=== PATIENT | female | born 1940 | race Caucasian/White ===

== ENCOUNTER 2016-11-13 04:48 | Inpatient (IN) | payer OTHER ==
[2016-10-28 11:54] VITALS: BMI 27.0
--- NOTE | 2016-10-28 12:40 | PAT Medication Instructions ---
Service Date Oct 28, 2016. Current Home Medication List Acetaminophen (Tylenol), 650 MG PO Q4 PRN for Pain Allopurinol (Zyloprim), 300 MG PO HS Aloe Vera (Aloe Vera), 1 CAP PO QAM Bumetanide (Bumex), 2 MG PO QAM Calcium/Vitamin D (Os-Sridhar 500 Plus D), 1 TAB PO QAM Cholecalciferol (Vitamin D3), 1 TAB PO QAM Cyanocobalamin (Vitamin B12), 1 TAB PO QAM Digoxin (Digoxin), 1 TAB PO QAM Fenofibrate (Tricor), 48 MG PO HS Lisinopril (Zestril), 2.5 MG PO QAM Metoprolol Succinate (Toprol Xl), 25 MG PO QAM Multivitamin (Multivitamin), 1 TAB PO QAM [place]-3 Fatty Acids ([place] 3), 1 CAP PO QAM Omeprazole (Prilosec), 20 MG PO QAM Pravastatin (Pravachol ), 20 MG PO HS Rivaroxaban (Xarelto), 20 MG PO QPM [Magnesium], 500 MG PO QAM Medication Instructions For Your Scheduled Surgery Rivaroxaban (Xarelto), 20 MG PO QPM (hold 3 days prior to surgery- cardio approves) - Hold the following medications 2 weeks prior to surgery: [place]-3 Fatty Acids ([place] 3), 1 CAP PO QAM - Hold the following medications 5 days prior to surgery: Aloe Vera (Aloe Vera), 1 CAP PO QAM - Hold the following medications evening prior to surgery: Fenofibrate (Tricor), 48 MG PO HS - Hold the following medications the morning of surgery: Magnesium 500 MG PO QAM Multivitamin (Multivitamin), 1 TAB PO QAM Lisinopril (Zestril), 2.5 MG PO QAM Calcium/Vitamin D (Os-Sridhar 500 Plus D), 1 TAB PO QAM Cholecalciferol (Vitamin D3), 1 TAB PO QAM Cyanocobalamin (Vitamin B12), 1 TAB PO QAM Bumetanide (Bumex), 2 MG PO QAM - Take the following medications the morning of surgery with a sip of water: Omeprazole (Prilosec), 20 MG PO QAM Metoprolol Succinate (Toprol Xl), 25 MG PO QAM Digoxin (Digoxin), 1 TAB PO QAM Acetaminophen (Tylenol), 650 MG PO Q4 PRN for Pain (if needed) - Take the following medications as scheduled the night before surgery: Pravastatin (Pravachol ), 20 MG PO HS Allopurinol (Zyloprim), 300 MG PO HS Acetaminophen (Tylenol), 650 MG PO Q4 PRN for Pain If you have any questions please call us at [phone] or [phone] ( [facility]) or [phone]
[2016-10-28 13:25] LABS: BASO % 0.5 %; BASO ABS # 0.05 K/uL (0-0.2); COMPLETE YES; EOS % 1.9 %; IG% 0.3 %; LYMPH % 19.1 %; LYMPH ABS # 2.06 K/uL (1.2-3.4); MEAN CELL VOLUME 91.7 fL (80-100); MEAN CORPUSCULAR HEMOGLOBIN 29.9 pg (25-34); MEAN CORPUSCULAR HGB CONC 32.6 g/dl (32-36); MONO % 6.8 %; NEUT % 71.4 %; PLATELET COUNT 238 K/uL (130-400); RED BLOOD COUNT 4.69 M/uL (4.2-5.4)
[2016-10-28 13:34] LABS: PARTIAL THROMBOPLASTIN RATIO 1.1; PROTHROMBIN TIME (PATIENT) 10.3 SECONDS (9.0-12.0)
[2016-10-28 13:36] LABS: URINE APPEARANCE CLEAR (CLEAR); URINE BILIRUBIN NEG (NEG); URINE COLOR YELLOW; URINE NITRITE NEG (NEG); URINE PH 5.5 (4.5-7.5); URINE SPECIFIC GRAVITY 1.004 (1.000-1.030); UROBILINOGEN NEG (NEG)
[2016-10-28 13:40] LABS: MANUAL MICROSCOPIC REQUIRED? NO; REVIEW REQ? NO
[2016-10-28 14:07] LABS: BUN/CREATININE RATIO 28.4 (10-20); CALCIUM 9.8 mg/dl (8.5-10.1); CREATININE 0.86 mg/dl (0.60-1.20); POTASSIUM 3.7 mmol/L (3.5-5.1)
--- NOTE | 2016-11-11 12:56 | HISTORY & PHYSICAL EXAMINATION ---
DATE OF ADMISSION: 11/13/2016 CHIEF COMPLAINT: Primary osteoarthritis of the right knee. HISTORY OF PRESENT ILLNESS: Nevaeh is a pleasant 76-year-old female who has been dealing with chronic bilateral knee pain for several years. She has been seeing an orthopedic surgeon up in [facility]. After failing years of conservative treatment, she has elected to proceed with a total knee arthroplasty. Given her cardiac history she came down to [place] for the procedure. She understands all the risks, benefits, alternatives to the procedure and has elected to proceed. PAST MEDICAL HISTORY: Coronary artery disease, hyperlipidemia, GERD, atrial flutter and cardiac dysrhythmias. PAST SURGICAL HISTORY: Significant for a quadruple bypass surgery in 1989, repeat quadruple bypass in 1998, cardiac stent placement in 2014. ALLERGIES: AMIODARONE AND WARFARIN. MEDICATIONS: Include lisinopril, Tylenol, Xarelto, Bumex, digoxin, fenofibrate, pravastatin, and Toprol. FAMILY HISTORY: Noncontributory. SOCIAL HISTORY: The patient is , rarely drinks, and is moderately active. REVIEW OF SYSTEMS: She complains of bilateral knee pain, right worse than left. All other pertinent review of systems is negative. PHYSICAL EXAMINATION: GENERAL: She is awake, alert and oriented x3. She is in no apparent distress. She is very pleasant. HEENT: Pupils equal, round and reactive to light. Extraocular motion intact. Oral mucosa is pink and moist. VITAL SIGNS: Regular rate per radial pulse. LUNGS: Magali symmetrically bilaterally with no audible breath sounds. ABDOMEN: Soft, nontender, nondistended. MUSCULOSKELETAL: On physical examination of the right knee, she does have a varus deformity and severe tenderness to palpation mostly along the medial compartment of the right knee. She has a mild effusion. She has good motion from 0-130 degrees. No instability. IMAGING DATA: X-rays of the knee do show advanced medial compartmental arthritis and varus deformity. IMPRESSION: Medial compartmental arthritis of the right knee. PLAN: Will proceed with a Vanguard Biomet total knee arthroplasty. Postoperatively, she will be placed back on her Xarelto and discharged to general orthopedic floor for postoperative medical management. She likely can be discharged to home with home health service.
[2016-11-13] VITALS (9 sets, daily range): BP systolic 91–134; BP diastolic 53–80; PULSE 60–63; TEMP 36.3–36.9; O2SAT 92–99; Ht 154.9 cm; Wt 65.6 kg
[~2016-11-13] VITALS: Ht 154.9 cm; Wt 65.6 kg
[~2016-11-13 04:48] MED LIST: ACET-1311 PO; ALLO300T2 PO; ALOE25CA4 PO; BUME2TAB3 PO; CALC500C70 PO; CHOL1000 PO; CYAN100020 PO; FENO48TA9 PO; LISI-729 PO; LNX125 PO; MAGNESIUM PO; METO25TA3 PO; MULT-506 PO; OMEG100046 PO; PRAV20TA PO; PRLSR20 PO; RIVA1TAB4 PO
[2016-11-13] MEDS ORDERED: CEFAZOLIN 2000 MG/60 ML D5W 60 ML IV SCH (06:00)
[2016-11-13] MEDS ORDERED: GABAPENTIN 300 MG CAP PO SCH (06:00)
[2016-11-13] MEDS ORDERED: LACTATED RINGER'S 1000ML 500 ML IV ONE (06:00)
[2016-11-13] MEDS ORDERED: ROPIVACAINE 5MG/ML 30 ML 150 MG, BUPIVACAINE/EPINEPHR 0.5% MPF 30 ML, KETOROLAC TROMETH... INFIL SCH ×7 (06:00)
[2016-11-13] MEDS ORDERED: FAMOTIDINE 20 MG TAB PO SCH (06:00)
[2016-11-13] MEDS ORDERED: LACTATED RINGER'S 1000ML 1,000 ML IV SCH ×2 (06:00)
[2016-11-13] MEDS ORDERED: ACETAMINOPHEN 500 MG TAB PO SCH (06:00)
[2016-11-13] MEDS ORDERED: BUPIVACAINE 0.5 % 5 MG/1 ML PF 10ML VIAL ONE (06:14)
[2016-11-13] MEDS ORDERED: BUPIVACAINE 0.25% 30 ML VIAL ONE (06:15)
--- NOTE | 2016-11-13 06:18 | History & Physical Bridge Note ---
H&P Re-Evaluation Bridge Note: I have examined the patient, reviewed the History & Physical and in the interval since the performance of the History & Physical I have noted the following changes of clinical significance: No changes noted
[2016-11-13] MEDS ORDERED: PROPOFOL IV EMULSION 10 MG/ML 20 ML VIAL IV ONE (06:25)
[2016-11-13] MEDS ORDERED: MIDAZOLAM HCL 1 MG/ML 2ML VIAL ONE (06:25)
[2016-11-13] MEDS ORDERED: LIDOCAINE HCL 2% 2 ML VIAL (20MG/ML) ONE (06:25)
[2016-11-13] MEDS ORDERED: FENTANYL CITRATE INJ 50 MCG/1 ML 2 ML VIAL ONE (06:25)
[2016-11-13] MEDS ORDERED: ONDANSETRON INJ 2 MG/ML 2 ML VIAL ONE (06:25)
[2016-11-13] MEDS ORDERED: ORTHO JOINT ANESTHETIC ONE (06:41)
[2016-11-13] MEDS ORDERED: CLINDAMYCIN 600 MG/54 ML D5W IV ONE (06:50)
[2016-11-13] MEDS ORDERED: ATROPINE SULFATE 0.1 MG/ML 5ML SYR IV PRN (07:30)
[2016-11-13] MEDS ORDERED: HYDROmorphone INJ 2 MG/ML SYR/VIAL IV PRN (07:30)
[2016-11-13] MEDS ORDERED: ONDANSETRON INJ 2 MG/ML 2 ML VIAL IV PRN ×2 (07:30→08:45)
[2016-11-13] MEDS ORDERED: PHENYLEPHRINE 100MCG/ML 5ML SYR IV PRN (07:30)
[2016-11-13] MEDS ORDERED: EpHEDrine SULFATE INJ 50 MG/ML AMP IV PRN (07:30)
[2016-11-13] MEDS ORDERED: BACITRACIN 50000 UNIT VIAL IR ONE (08:12)
--- NOTE | 2016-11-13 08:41 | [facility] Post Operative Brief Note ---
Immediate Operative Summary Operative Date Nov 13, 2016. Pre-Operative Diagnosis Medial compartmental arthritis of the right knee. Post-Operative Diagnosis Same as preoperative diagnosis Procedure(s) Performed Right Total Knee Arthroplasty Surgeon Dr. Diaz Track Rider Surgeon(s) Benjamín Salvador PA-C Estimated Blood Loss 5ml Findings as above Specimens A: Bone and tissue, right knee Complication(s) None Disposition Recovery Room / PACU
[2016-11-13] MEDS ORDERED: BISACODYL 10 MG SUPP PR PRN (08:45)
[2016-11-13] MEDS ORDERED: MAGNESIUM HYDROXIDE SUSP 30 ML UDC PO PRN (08:45)
[2016-11-13] MEDS ORDERED: SILVER SULFADIAZINE 1% CR 50 GM JAR EXT PRN (08:45)
[2016-11-13] MEDS ORDERED: SOD PHOSPHATE/SOD BIPHOSPHATE ENEMA 132 ML BTL PR PRN (08:45)
[2016-11-13] MEDS ORDERED: MoRPHine SULFATE 2 MG/ML CARP IV PRN (08:45)
[2016-11-13] MEDS ORDERED: METOCLOPRAMIDE HCL INJ 5 MG/ML 2 ML VIAL IV PRN (08:45)
--- NOTE | 2016-11-13 09:10 | DIAGNOSTIC IMAGING REPORT ---
RIGHT KNEE 2 VIEWS History: Right total knee arthroplasty. Degenerative arthritis. Postop. FINDINGS: The patient is status post a right total knee arthroplasty. The hardware is intact. No fracture or dislocation. Surgical drains are in place. Multiple surgical clips along the medial aspect of the knee. IMPRESSION: Right total knee arthroplasty. No evidence for hardware complication. Electronically signed by: Boris Ibarra M.D. 11/13/2016 9:09 AM Dictated Date/Time: 11/13/2016 9:08 AM
--- NOTE | 2016-11-13 09:16 | OPERATIVE REPORT ---
DATE OF OPERATION: 11/13/2016 PREOPERATIVE DIAGNOSIS: Primary osteoarthritis of the right knee. POSTOPERATIVE DIAGNOSIS: Same. PROCEDURE: Right total knee arthroplasty. SURGEON: Dr. Kelechi Diaz. FREIGHT ELEVATOR ERECTOR: Benjamín Salvador PA-C, whose assistance was necessary for positioning of the leg and helping with retraction. ANESTHESIA: Spinal with a right adductor nerve block. COMPLICATIONS: None. CONDITION: Stable to PACU. IMPLANTS USED: I used a Biomet Vanguard right total knee arthroplasty system with a 67.5 right femur, 71 tibia, a 28 mm patella and a 10 mm posterior stabilized bearing. The femoral, tibial, and patellar components were cemented with Palacos-G cement. INDICATIONS: Nevaeh is a pleasant 76-year-old female who presented to my office with chronic right knee pain. X-rays and clinical examination were diagnostic for primary osteoarthritis of the right knee. After failing conservative treatment, she elected to undergo a right total knee arthroplasty. OPERATION AND FINDINGS: On 11/13/2016 she arrived at [facility] for the above procedure. She was seen in the preoperative holding area and the operative extremity was identified and signed. She was then given a spinal anesthetic and a right adductor nerve block. She was taken back to the operating room, laid on the table in supine position and put under general anesthesia. The right leg was then prepped and draped in sterile fashion. Time-out was done and the patient and operative extremity was properly identified. A midline incision was made directly over the patella. Dissection was taken down to the extensor mechanism and a medial parapatellar approach was used. The fat pad was removed, the medial retinaculum was released and the suprapatellar synovium was removed. The knee was then flexed. ACL and meniscus were removed. A drill was sent down the center of the femoral canal. An intramedullary hernandez was then placed and off that hernandez a distal femoral cutting block was placed. An 11 mm was then resected off the distal femur at 5 degrees of valgus. A posterior referencing guide was used to measure the distal femur and it measured to be a 67.5. Two drill holes were placed in 3 degrees of external rotation and the 4-in-1 cutting block was impacted into place. Anterior, posterior and chamfer cuts were then made. The box cutting guide was then attached and the box was resected for the posterior stabilizing component. The proximal tibia was then exposed. A drill was sent down the center of the tibial canal followed by an intramedullary hernandez. Off that hernandez, a proximal tibial resection guide was placed and 2 mm was resected off the low medial side. The tibia was measured to be a size 71. The tibia was then drilled and punched. Trials were placed. The knee was brought through a full range of motion and felt to be stable. The patella was everted and 8 mm was resected off the posterior aspect of the patella. A 28 mm patella was the right size and 3 peg holes were drilled. A trial patella was used. The knee was flexed and extended and felt to be stable. The trials were removed. The knee was then irrigated with 3 liters of normal saline solution with bacitracin. Surrounding soft tissues were then injected with the orthopedic pain control cocktail. The tibial, femoral and patellar components were then cemented with Palacos-G cement. After the cement had hardened, several different polyethylene bearings were used and a size 10 seemed to be the best fit. The final 10 bearing was then snapped into place and the anterior bar was locked. The knee was brought through a full range of motion and felt to be stable. Two drains were placed. The extensor mechanism was closed with #2 Vicryl in the superior medial aspect of the patella and #2 FiberWire in the superior medial aspect of the patella and a #1 Vicryl for the remainder of the closure. Skin was closed with 2-0 Vicryl, 3-0 V-Loc suture and a Prineo dressing. She was then placed in a compressive Clyde wrap and taken to the postanesthesia care unit in stable condition. She tolerated the procedure well. I attest to the content of the Intraoperative Record and any orders documented therein. Any exceptio ns are noted below.
[2016-11-13] MEDS ORDERED: NURSING VERBAL MED ORDER STA (10:44)
--- NOTE | 2016-11-13 10:57 | Anesthesiology Progress Note ---
Anesthesia Post Op Note Date & Time Nov 13, 2016 at 10:57 Vital Signs Pain Intensity: 0 Vital Signs Past 12 Hours Date Time Temp Pulse Resp B/P Pulse Ox O2 Delivery O2 Flow Rate FiO2 11/13/16 10:33 93/48 11/13/16 10:31 60 20 96 11/13/16 10:31 60 20 11/13/16 10:28 94/44 11/13/16 10:26 36.9 11/13/16 10:26 60 18 96 11/13/16 10:26 60 18 11/13/16 10:23 94/48 11/13/16 10:21 60 19 97 11/13/16 10:21 60 19 11/13/16 10:20 61 17 11/13/16 10:20 60 17 95 11/13/16 10:18 92/47 11/13/16 10:15 60 16 11/13/16 10:15 60 16 96 11/13/16 10:13 106/48 11/13/16 10:10 60 19 11/13/16 10:10 61 19 97 11/13/16 10:08 89/47 11/13/16 10:05 60 17 96 11/13/16 10:05 60 17 11/13/16 10:03 94/45 11/13/16 10:00 60 17 11/13/16 10:00 60 17 96 11/13/16 09:58 90/48 11/13/16 09:55 60 17 11/13/16 09:55 60 17 95 11/13/16 09:53 94/46 11/13/16 09:50 60 19 96 11/13/16 09:50 60 19 11/13/16 09:48 102/52 11/13/16 09:45 60 16 11/13/16 09:45 60 16 97 11/13/16 09:43 112/50 11/13/16 09:40 60 15 11/13/16 09:40 60 15 96 11/13/16 09:39 60 15 95 11/13/16 09:39 60 15 11/13/16 09:38 91/45 11/13/16 09:34 60 16 11/13/16 09:34 61 16 94 11/13/16 09:33 91/46 11/13/16 09:31 96/47 11/13/16 09:29 60 16 11/13/16 09:29 61 16 93 11/13/16 09:28 91/49 11/13/16 09:24 60 16 11/13/16 09:24 60 16 95 11/13/16 09:23 101/51 11/13/16 09:19 60 15 11/13/16 09:19 60 15 100 11/13/16 09:18 98/50 11/13/16 09:14 61 15 100 11/13/16 09:14 60 15 11/13/16 09:13 100/52 11/13/16 09:10 60 16 11/13/16 09:10 60 16 106/55 100 11/13/16 09:08 89/49 11/13/16 09:05 60 15 100 11/13/16 09:05 60 15 11/13/16 09:03 93/54 11/13/16 09:00 60 15 11/13/16 09:00 60 15 100 11/13/16 08:58 110/50 11/13/16 08:55 60 15 11/13/16 08:55 60 15 100 11/13/16 08:53 113/56 11/13/16 08:50 60 15 100 11/13/16 08:50 60 15 11/13/16 08:48 125/53 11/13/16 08:45 36.5 61 14 126/60 100 Mask 10 11/13/16 08:45 62 15 11/13/16 08:45 61 15 126/60 100 11/13/16 05:41 36.5 63 18 134/65 95 Room Air Notes Mental Status: alert / awake / arousable, participated in evaluation Pt Amnestic to Procedure: Yes Nausea / Vomiting: adequately controlled Pain: adequately controlled Airway Patency, RR, SpO2: stable & adequate BP & HR: stable & adequate Hydration State: stable & adequate Anesthetic Complications: no major complications apparent
[2016-11-13] MEDS: D5W AND 1/2NSS + 20MEQ KCL 1,000 ML IV SCH ×2 (12:02→21:21)
[2016-11-13] MEDS: CLINDAMYCIN IV 600 MG in DEXTROSE 5% ADD-VANTAGE 50ML 50 ML IV SCH ×2 (13:14→22:27)
[2016-11-13] MEDS: ACETAMINOPHEN IV 1,000 MG in EMPTY BAG 0 ML IV SCH ×2 (14:08→21:29)
[2016-11-13] MEDS: DIGOXIN 0.125 MG TAB PO SCH ×2 (16:00→17:01)
[2016-11-13] MEDS: PRAVASTATIN SOD 20 MG TAB PO SCH (21:21)
[2016-11-13] MEDS: DOCUSATE SODIUM 100 MG CAP PO SCH (21:21)
[2016-11-13] MEDS: SENNA 8.6 MG TAB PO SCH (21:21)
[2016-11-13] MEDS: ALLOPURINOL 300 MG TAB PO SCH (21:22)
[2016-11-13] MEDS: FENOFIBRATE 48 MG TAB PO SCH (21:23)
[2016-11-14] VITALS (7 sets, daily range): BP systolic 92–186; BP diastolic 52–69; PULSE 59–65; TEMP 36.4–36.8; O2SAT 90–96
[2016-11-14] MEDS: ACETAMINOPHEN IV 1,000 MG in EMPTY BAG 0 ML IV SCH ×3 (05:39→21:47)
[2016-11-14 06:46] LABS: HEMATOCRIT 32.8 % (37-47); MEAN CELL VOLUME 92.7 fL (80-100); MEAN CORPUSCULAR HEMOGLOBIN 29.4 pg (25-34); MEAN CORPUSCULAR HGB CONC 31.7 g/dl (32-36); MEAN PLATELET VOLUME 10.7 fL (7.4-10.4); PLATELET COUNT 237 K/uL (130-400); RED BLOOD COUNT 3.54 M/uL (4.2-5.4)
--- NOTE | 2016-11-14 06:47 | PROGRESS NOTE ---
DATE: 11/14/2016 CHIEF COMPLAINT: Status post right total knee arthroplasty postop day #1. PROGRESS: Nevaeh was seen and examined at bedside today. Overall, she is doing well. She has some soreness and cramping in her leg but not a lot of pain. She has no other complaints. PHYSICAL EXAMINATION: RIGHT KNEE: The dressing is clean and dry, the drain is to suction. She has active dorsiflexion and plantarflexion of her right ankle and sensation is intact throughout. LABORATORY DATA: Hematology and chemistry are still pending. Vital signs are mostly stable on room air but she is a little bit hypotensive. Her Hemovac has put out a lot, 820 yesterday and 125 so far today. She is voiding on her own. X-rays postoperatively of the right knee show the prosthesis to be in good alignment without any evidence of fracture, dislocation or loosening. IMPRESSION: Status post right total knee arthroplasty postop day #1. PLAN: At this point, she is doing fairly well. She is awake and alert, and her pain is controlled. We will check her H\T\H, and if she has a significant drop, I may give her a unit of blood. She will be up and walking today with physical therapy, and we are still planning on discharge to rehab facility tomorrow.
[2016-11-14 06:59] LABS: BUN/CREATININE RATIO 29.2 (10-20); CALCIUM 8.9 mg/dl (8.5-10.1); CREATININE 0.89 mg/dl (0.60-1.20); POTASSIUM 5.1 mmol/L (3.5-5.1)
[2016-11-14] MEDS: D5W AND 1/2NSS + 20MEQ KCL 1,000 ML IV SCH (07:25)
[2016-11-14] MEDS: PANTOprazole SOD 40 MG TAB PO SCH (09:07)
[2016-11-14] MEDS: MULTIVITAMIN TAB PO SCH (09:07)
[2016-11-14] MEDS: CYANOCOBALAMIN 500 MCG TAB (VIT B-12) PO SCH (09:08)
[2016-11-14] MEDS: CHOLECALCIFEROL 1000 INTER.UNIT TAB PO SCH (09:08)
[2016-11-14] MEDS: CALCIUM 600MG + VIT D 400 IU TAB PO SCH (09:08)
[2016-11-14] MEDS: LISINOPRIL 2.5 MG TAB PO SCH (09:08)
[2016-11-14] MEDS: BUMETANIDE 1 MG TAB PO SCH (09:09)
[2016-11-14] MEDS: METOPROLOL SUCC 25MG EXT REL TAB PO SCH (09:09)
[2016-11-14] MEDS: DOCUSATE SODIUM 100 MG CAP PO SCH ×2 (09:09→20:28)
[2016-11-14] MEDS: OXYCODONE HCL IR 5 MG TAB (IMMEDIATE RELEASE) PO PRN ×3 (09:14→19:01)
[2016-11-14] MEDS: KETOROLAC TROMETHAMINE 15 MG/ML VIAL IV. PRN (11:46)
[2016-11-14] MEDS: DIGOXIN 0.125 MG TAB PO SCH (15:38)
[2016-11-14] MEDS ORDERED: RIVAROXABAN 10 MG TAB PO SCH (16:00)
[2016-11-14] MEDS ORDERED: NURSING VERBAL MED ORDER ONE (20:00)
[2016-11-14] MEDS: SENNA 8.6 MG TAB PO SCH (20:28)
[2016-11-14] MEDS: PRAVASTATIN SOD 20 MG TAB PO SCH (20:28)
[2016-11-14] MEDS: CALCIUM CARBONATE 500 MG CHEWABLE PO PRN (20:28)
[2016-11-14] MEDS: FENOFIBRATE 48 MG TAB PO SCH (20:28)
[2016-11-14] MEDS: ALLOPURINOL 300 MG TAB PO SCH (20:28)
[2016-11-15] MEDS: OXYCODONE HCL IR 5 MG TAB (IMMEDIATE RELEASE) PO PRN ×3 (00:02→11:14)
[2016-11-15] MEDS: KETOROLAC TROMETHAMINE 15 MG/ML VIAL IV. PRN (02:40)
[2016-11-15] MEDS: CALCIUM CARBONATE 500 MG CHEWABLE PO PRN (02:48)
[2016-11-15] MEDS: ACETAMINOPHEN IV 1,000 MG in EMPTY BAG 0 ML IV SCH (05:30)
[2016-11-15 06:17] VITALS: BP 116/72; PULSE 60; TEMP 36.4; O2SAT 94
[2016-11-15 06:50] VITALS: BP 110/62; PULSE 61; TEMP 36.5; O2SAT 92
[2016-11-15] MEDS: METOPROLOL SUCC 25MG EXT REL TAB PO SCH (07:48)
[2016-11-15] MEDS: BUMETANIDE 1 MG TAB PO SCH (07:48)
[2016-11-15] MEDS: CYANOCOBALAMIN 500 MCG TAB (VIT B-12) PO SCH (07:48)
[2016-11-15] MEDS: DOCUSATE SODIUM 100 MG CAP PO SCH (07:48)
[2016-11-15] MEDS: MULTIVITAMIN TAB PO SCH (07:49)
[2016-11-15] MEDS: PANTOprazole SOD 40 MG TAB PO SCH (07:49)
[2016-11-15] MEDS: CALCIUM 600MG + VIT D 400 IU TAB PO SCH (07:49)
[2016-11-15] MEDS: CHOLECALCIFEROL 1000 INTER.UNIT TAB PO SCH (07:49)
[2016-11-15] MEDS: LISINOPRIL 2.5 MG TAB PO SCH (07:50)
[2016-11-15] MEDS ORDERED: RXC5 PO (10:33)
--- NOTE | 2016-11-15 10:36 | Discharge Instructions ---
Discharge Instructions Admission Reason for Admission: Right Knee Pain, Bilateral Knee Gonarthrosis Discharge Discharge Diagnosis / Problem: Left Total knee Discharge Goals Goal(s): Decrease discomfort, Improve function Activity Recommendations Activity Limitations: resume your previous activity Shower/Bathe: may shower/bathe in 3 days . Instructions / Follow-Up Instructions / Follow-Up May shower on Wednesday. Follow-up in 2 weeks Current Hospital Diet Patient's current hospital diet: Regular Diet Discharge Diet Recommended Diet: Regular Diet Procedures Procedures Performed: Right Total Knee Arthroplasty Pending Studies Studies pending at discharge: no Medical Emergencies . Who to Call and When: Medical Emergencies: If at any time you feel your situation is an emergency, please call 911 immediately. . Non-Emergent Contact Non-Emergency issues call your: Surgeon Call Non-Emergent contact if: wound has increased drainage, wound has increased redness . "Provider Documentation" section prepared by Kelechi Diaz. VTE Core Measure Inpt VTE Proph given/why not?: Other Anticoagulation (continue Xerelto)
--- NOTE | 2016-11-15 11:02 | PROGRESS NOTE ---
DATE: 11/15/2016 CHIEF COMPLAINT: Right total knee arthroplasty postop day #2. PROGRESS PLAN: She was seen and examined at the bedside today. Overall, she is doing well except for the pain. She is still needing some morphine to help control her pain. She has been up and ambulating well. She has already had a bowel movement. Otherwise, she is doing fine. PHYSICAL EXAMINATION: RIGHT KNEE: The dressing has been changed. The Prineo is intact. The drains have been pulled. Her knee is in full extension. She is neurovascularly intact. IMPRESSION: Status post right total knee arthroplasty postop day #2. PLAN: At this point, she is doing well except for the pain. We will continue to try some of the oxycodone for pain control, as she is tolerating it well. She still feels like she is good to go home today. She has already been seen by physical therapy and she is orthopedically stable for discharge to home with the oral oxycodone.
[2016-11-15 11:49] VITALS: BP 110/62; PULSE 61; TEMP 36.5; O2SAT 92
--- NOTE | 2016-11-15 14:23 | DISCHARGE SUMMARY ---
DISCHARGE DIAGNOSIS: Primary osteoarthritis of the right knee. PROCEDURE: Right total knee arthroplasty on 11/13/[address] Kelechi Diaz. DISCHARGE INSTRUCTIONS: 1. Oxycodone 5-10 mg every 4 hours as needed for pain. 2. Xarelto 20 mg daily. 3. Tylenol 650 mg as needed for pain. 4. Allopurinol 300 mg at night. 5. Bumex 2 mg daily. 6. Vitamin D3 1000 units daily. 7. Vitamin B12 1000 mcg daily. 8. Digoxin 0.125 mg daily. 9. Tricor 48 mg at night. 10. Zestril 2.5 mg daily. 11. Toprol-XL 25 mg daily. 12. Prilosec 20 mg daily. 13. Pravachol 20 mg at night. 14. May shower starting tomorrow. 15. Followup with Dr. Diaz in 2 weeks. 16. Call the office of Dr. Diaz with any questions or concerns. HOSPITAL COURSE: Nevaeh is a pleasant 76-year-old female, who presented to my office with chronic right knee pain. X-rays and clinical examination were diagnostic for primary osteoarthritis of the right knee. After failing conservative treatment, she elected to undergo a right total knee arthroplasty. On 11/13/2016, she arrived at [facility] and underwent a right knee replacement without complications. She had a spinal anesthetic and a right adductor nerve block. Postoperatively, she was placed in a compressive dressing and discharged to general orthopedic floor. Her hospital course was uneventful. On postop day #1, her H\T\H was stable at 10.4 and 32.8. She was able to participate well with physical therapy. On postop day #2, the dressings were changed, the drain was pulled. She was having a lot of knee pain, but she was tolerating the oxycodone well. After passing physical therapy, once again she was subsequently discharged to home with the above instructions.
[2017-06-28] MEDS ORDERED: MAGN500T4 PO (09:54)
[2017-06-28] MEDS ORDERED: LISI-789 PO (09:54)
[2017-06-28] MEDS ORDERED: ASPI81TA28 PO (09:54)
[2017-06-28] MEDS ORDERED: AMIO200T4 PO (10:06)
== END 2016-11-15 12:12 | disposition home or self-care (01) | DRG 470 ==
LOC: ENRESERVDT → ENRESERVTM → C.ACU 04:48 → C.3E 06:15
PROVIDERS: ADMIT Orthopaedic Surgery; ATTEND Orthopaedic Surgery
PROC: 0SRC0J9 Replacement of Right Knee Joint with Synthetic Substitute, Cemented, Open Approach (ICD-10-PCS; principal; 2016-11-13 07:00)
DX: M17.11 Unilateral primary osteoarthritis, right knee (principal); I48.92 Unspecified atrial flutter; E78.5 Hyperlipidemia, unspecified; I25.10 Atherosclerotic heart disease of native coronary artery without angina pectoris; K21.9 Gastro-esophageal reflux disease without esophagitis

== ENCOUNTER → 2017-06-21 | Outpatient (CLI) | payer OTHER ==
[~2017-06-21] MED LIST changes: +AMIO200T4 PO; +ASPI81TA28 PO; +GABA-112 PO; +HYDR-5688 PO; +LISI-789 PO; +MAGN500T4 PO; +RXC5 PO
[2017-06-21 13:46] LABS: BASO % 0.1 %; BASO ABS # 0.02 K/uL (0-0.2); COMPLETE YES; EOS % 1.4 %; IG% 0.7 %; LYMPH % 21.9 %; LYMPH ABS # 3.58 K/uL (1.2-3.4); MEAN CELL VOLUME 89.3 fL (80-100); MEAN CORPUSCULAR HEMOGLOBIN 28.4 pg (25-34); MEAN CORPUSCULAR HGB CONC 31.8 g/dl (32-36); MEAN PLATELET VOLUME 10.7 fL (7.4-10.4); MONO % 6.9 %; PLATELET COUNT 414 K/uL (130-400); RED BLOOD COUNT 5.04 M/uL (4.2-5.4); WHITE BLOOD COUNT 16.36 K/uL (4.8-10.8)
[2017-06-21 14:07] LABS: BLOOD UREA NITROGEN 28 mg/dl (7-18); BUN/CREATININE RATIO 31.6 (10-20); CALCIUM 9.4 mg/dl (8.5-10.1); CARBON DIOXIDE 28 mmol/L (21-32); CHLORIDE 107 mmol/L (98-107); CREATININE 0.89 mg/dl (0.60-1.20); GLUCOSE 97 mg/dl (70-99); POTASSIUM 4.2 mmol/L (3.5-5.1); SODIUM 140 mmol/L (136-145)
== END | disposition home or self-care (01) ==
LOC: C.LABBC 12:09
PROVIDERS: ATTEND Orthopaedic Surgery
DX: Z01.812 Encounter for preprocedural laboratory examination (principal); M51.36 Other intervertebral disc degeneration, lumbar region

== ENCOUNTER 2017-07-09 04:47 | Day surgery (SDC) | payer OTHER ==
[2017-06-28 09:54] VITALS: BMI 24.0
--- NOTE | 2017-07-08 11:29 | HISTORY & PHYSICAL EXAMINATION ---
DATE OF ADMISSION: 07/09/2017 CHIEF COMPLAINT: Right knee arthrofibrosis. HISTORY OF PRESENT ILLNESS: Nevaeh is a pleasant 76-year-old female who is about 7 months status post right total knee arthroplasty. She was doing very well. She had no pain and full range of motion of her knee until several weeks ago when she was walking. She had her foot caught in a hole and a twisting injury to her knee. Since then, she has pain and discomfort and significantly decreased range of motion. She is having a hard time ambulating. When she presented to my office, the x-rays were negative. The loss of motion is concerning and she elected to undergo a manipulation to see if we could break up some scar tissue. PAST MEDICAL HISTORY: Significant for congestive heart failure and AK in 1989 and osteoarthritis. ALLERGIES: INCLUDE COUMADIN. MEDICATIONS: Include lisinopril, Prevacid, Xarelto, Bumex, digoxin and metoprolol. PAST SURGICAL HISTORY: Significant for open heart bypass surgery and an appendectomy. SOCIAL HISTORY: She quit smoking in the year 1999. She denies any alcohol use. FAMILY HISTORY: Noncontributory. REVIEW OF SYSTEMS: She complains of right knee pain and stiffness. All other pertinent review of systems are negative. PHYSICAL EXAMINATION: GENERAL: She is awake, alert and oriented x3. She is in no apparent distress. She is very pleasant. HEENT: Pupils are equal, round and reactive to light. Extraocular motions intact. Oral mucosa is pink and moist. HEART: Regular rate per radial pulse. LUNGS: Magali symmetrically bilaterally with no audible breath sounds. ABDOMEN: Soft, nontender, and nondistended. MUSCULOSKELETAL: On physical examination of her right knee, she ambulates with assistance. The previous incision is well healed. She is a few degrees from full extension. She can get about 90 degrees of flexion; although passively, I am unable to get her any further. She has tenderness to palpation of her hamstrings. She has no instability of her knee. There are no signs of infection. IMAGING: X-rays of the knee showed the components to be in good alignment without any evidence of fracture, dislocation or loosening. X-rays of the lumbar spine show multilevel degenerative changes. IMPRESSION: Postoperative stiffness, status post right total knee. PLAN: She is mostly concerned about her loss of motion. She simply twisted her knee and there is no effusion. There are no signs of infection, but she is stuck at 90 degrees. She would like to proceed with a manipulation under anesthesia and see what were able to get. I think that that is reasonable. Postoperatively, she will be given some oral pain medications and a scheduled followup with physical therapy the following morning.
[~2017-07-09] VITALS: Ht 152.4 cm; Wt 56.8 kg
[~2017-07-09 04:47] MED LIST changes: -GABA-112 PO; -HYDR-5688 PO; -LISI-729 PO; -MAGNESIUM PO; -PRLSR20 PO
[2017-07-09] MEDS ORDERED: GABA-112 PO (05:37)
[2017-07-09 05:40] VITALS: BP 137/62; PULSE 73; TEMP 36.4; O2SAT 99; Ht 152.4 cm; Wt 56.8 kg
[2017-07-09] MEDS ORDERED: LACTATED RINGER'S 1000ML 1,000 ML IV SCH (06:00)
[2017-07-09] MEDS ORDERED: LACTATED RINGER'S 1000ML IV SCH (06:00)
[2017-07-09] MEDS ORDERED: ACETAMINOPHEN 500 MG TAB PO SCH (06:00)
[2017-07-09] MEDS ORDERED: METHYLPREDNISOLONE ACETATE 80 MG/ML VIAL ONE (06:31)
[2017-07-09] MEDS ORDERED: BUPIVACAINE 0.5 % 5 MG/1 ML MPF 30ML VIAL ONE (06:32)
[2017-07-09] MEDS ORDERED: BUPIVACAINE/EPINEPHRINE 0.5% MPF 1:200,000 10 ML VIAL ONE (06:32)
[2017-07-09] MEDS ORDERED: FENTANYL CITRATE INJ 50 MCG/1 ML 2 ML VIAL IV PRN (06:45)
[2017-07-09] MEDS ORDERED: ONDANSETRON INJ 2 MG/ML 2 ML VIAL IV PRN ×2 (06:45→07:30)
[2017-07-09] MEDS ORDERED: ATROPINE SULFATE 0.1 MG/ML 5ML SYR IV PRN (06:45)
[2017-07-09] MEDS ORDERED: EpHEDrine SULFATE INJ 50 MG/ML AMP IV PRN (06:45)
[2017-07-09] MEDS ORDERED: MIDAZOLAM HCL 1 MG/ML 2ML VIAL ONE (06:47)
[2017-07-09] MEDS ORDERED: FENTANYL CITRATE INJ 50 MCG/1 ML 2 ML VIAL ONE (06:47)
[2017-07-09] MEDS ORDERED: PROPOFOL IV EMULSION 10 MG/ML 20 ML VIAL IV ONE (06:51)
[2017-07-09] MEDS ORDERED: HYDR-5688 PO (07:16)
[2017-07-09] MEDS ORDERED: SODIUM CHLORIDE 0.9% 1000ML 1,000 ML IV SCH (07:17)
--- NOTE | 2017-07-09 07:17 | Discharge Instructions ---
Discharge Instructions Date of Service Jul 09, 2017. Admission Reason for Admission: Right Knee Pain, Disorder Of Prosthetic Joint Discharge Discharge Diagnosis / Problem: SAME ABOVE Discharge Goals Goal(s): Decrease discomfort, Improve function, Increase independence Activity Recommendations Activity Limitations: resume your previous activity Lifting Limitations: gradually increase as tolerated Exercise/Sports Limitations: gradually increase as tolerated Shower/Bathe: no limitations . Instructions / Follow-Up Instructions / Follow-Up MEDICATIONS: * Resume previous medications unless instructed otherwise by your surgeon. * Always take pain medication on a full stomach or with food to avoid upset stomach. * Do not drink alcohol or drive while taking narcotics. * Ibuprofen or Tylenol may be taken if narcotic not needed. SPECIAL CARE INSTRUCTIONS: __ None _X_ Keep extremity elevated and iced x 48 hours; apply ice 20-30 minutes 8-10 times/day. May remove at night. __ Crutches __ May discard when able __ Brace/Post-op shoe __ 24 hrs/day __ Remove at night __ Dressing __ Maintain until seen in office, may shower with plastic over site __ Remove dressings in 24-48 hours and then may shower __ Cover incisions with band-aids after showering __ Do not remove steri-strips Call physician if chills or temperature rises above 102 degrees or pain unrelieved by prescribed pain medications. Office [phone] Current Hospital Diet Patient's current hospital diet: Discharge Diet Recommended Diet: Regular Diet Fluid Restriction: None Pending Studies Studies pending at discharge: no Medical Emergencies . Who to Call and When: Medical Emergencies: If at any time you feel your situation is an emergency, please call 911 immediately. . Non-Emergent Contact Non-Emergency issues call your: Primary Care Provider Call Non-Emergent contact if: you have a fever, temperature is above 101.5 . "Provider Documentation" section prepared by Apolinar Salvador. . VTE Core Measure Inpt VTE Proph given/why not?: Treatment not indicated
[2017-07-09] MEDS ORDERED: HYDROCODONE/ACETAMOPHEN 5/325MG TAB PO PRN ×2 (07:30)
--- NOTE | 2017-07-09 08:08 | Anesthesiology Progress Note ---
Anesthesia Post Op Note Date & Time Jul 09, 2017 at 08:07 Vital Signs Pain Intensity: 0 Vital Signs Past 12 Hours Date Time Temp Pulse Resp B/P (MAP) Pulse Ox O2 Delivery O2 Flow Rate FiO2 07/09/17 07:55 66 13 128/60 96 Room Air 07/09/17 07:45 36.6 65 17 118/69 98 Room Air 07/09/17 07:39 68 17 114/58 97 Room Air 07/09/17 07:27 36.0 73 16 107/59 99 Oxymask 4 07/09/17 05:40 36.4 73 20 137/62 (87) 99 Room Air Notes Mental Status: alert / awake / arousable, participated in evaluation Pt Amnestic to Procedure: Yes Nausea / Vomiting: adequately controlled Pain: adequately controlled Airway Patency, RR, SpO2: stable & adequate BP & HR: stable & adequate Hydration State: stable & adequate Anesthetic Complications: no major complications apparent
[2017-07-09 08:09] VITALS: BP 121/57; PULSE 56; TEMP 36.4; O2SAT 97
--- NOTE | 2017-07-09 08:20 | OPERATIVE REPORT ---
DATE OF OPERATION: 07/09/2017 PREOPERATIVE DIAGNOSIS: Arthrofibrosis of the right knee. POSTOPERATIVE DIAGNOSIS: Same. PROCEDURE: Manipulation under anesthesia of the right knee. SURGEON: Dr. Kelechi Diaz. CONVENIENCE STORE MANAGER: Benjamín Salvador PA-C, whose assistance was necessary for helping positioning the leg and helping with the manipulation. ANESTHESIA: General. COMPLICATIONS: None. CONDITION: Stable to PACU. INDICATIONS: Nevaeh is a pleasant 76-year-old female who underwent a right total knee arthroplasty about 8 months ago. She did very well postoperatively. She regained full range of motion of her knee and then, about 2 months ago, she twisted her knee and then noticed a decreased range of motion. She was only able to flex about 85 degrees. I saw her in the office. This seemed to be mechanical stop. So. she elected to proceed with the manipulation under anesthesia. DESCRIPTION OF PROCEDURE: On 07/09/2017, she arrived at [facility] for the above procedure. She was seen in the preoperative holding area and the operative extremity was identified and signed. She was taken back to the operating room, laid on the table in supine position and given a general anesthetic. Time-out was done and the patient and operative extremity was properly identified. On preoperative exam, the knee was flexed to about 85 degrees with a hard stop. A gentle manipulation was done under anesthesia. I was able to break up one area of scar tissue, which really gave me full range of motion of the knee. She had about 125 degrees of flexion after simple manipulation. I did inject the knee with 10 mL of Marcaine with Epinephrine. She was then taken to the postanesthesia care unit in stable condition. She tolerated the procedure well. I attest to the content of the Intraoperative Record and any orders documented therein. Any exception s are noted below.
[2017-07-09 08:40] VITALS: BP 122/57; PULSE 57; TEMP 36.7; O2SAT 95
--- NOTE | 2017-07-09 12:34 | [facility] Post Operative Brief Note ---
Immediate Operative Summary Operative Date Jul 09, 2017. Pre-Operative Diagnosis Right Knee Arthrofibrosis Post-Operative Diagnosis Right Knee Arthrofibrosis Procedure(s) Performed Right Knee Manipulation Under Anesthesia Surgeon Dr Diaz [employer] Surgeon(s) Benjamín Salvador PA-C Estimated Blood Loss 0 Findings as above Specimens none Complication(s) None Disposition Recovery Room / PACU
== END 2017-07-09 08:57 | disposition home or self-care (01) ==
LOC: C.ACU 04:47
PROVIDERS: ATTEND Orthopaedic Surgery
DX: M24.661 Ankylosis, right knee (principal); Z96.651 Presence of right artificial knee joint; Z95.1 Presence of aortocoronary bypass graft; M19.90 Unspecified osteoarthritis, unspecified site; Z90.89 Acquired absence of other organs; Z87.891 Personal history of nicotine dependence